=== PATIENT | female | born 1975 | race Caucasian/White ===

== ENCOUNTER 2018-03-04 17:07 | Emergency (ER) | payer SELFPAY ==
--- NOTE | 2018-03-04 18:04 | RADIOLOGY REPORT (SQ) ---
EXAM DESCRIPTION: HAND LEFT 3 VIEWS COMPLETED DATE/TIME: 03/04/2018 5:52 pm REASON FOR STUDY: dog bite COMPARISON: None. EXAM PARAMETERS: NUMBER OF VIEWS: Three views. TECHNIQUE: AP, lateral and oblique radiographic images acquired of the left hand. LIMITATIONS: None. FINDINGS: MINERALIZATION: Normal. BONES: No acute fracture or dislocation. No worrisome bone lesions. JOINTS: No effusions. SOFT TISSUES: No soft tissue swelling. No foreign body. OTHER: No other significant finding. IMPRESSION: NEGATIVE STUDY OF THE LEFT HAND. NO RADIOGRAPHIC EVIDENCE OF ACUTE INJURY. TECHNICAL DOCUMENTATION: JOB ID: [id number] [employer]- All Rights Reserved Reading location - IP/workstation name: [email or web address]
[2018-03-04] MEDS ORDERED: OXYCODONE-ACETAMINOPHEN 5-325 MG TABLET PO ONE (18:16)
--- NOTE | 2018-03-04 18:21 | ER Document Report ---
HPI - HPI Pain Level: 4 Notes: Patient is a 42-year-old female with a history of mental health disorders who presents to the ED complaining of left hand pain status post dog bite prior to arrival. Patient states that her dog as well as her brothers dog were in a fight and she tried to break it up and her left hand got caught in the middle. Patient states that she does have some puncture wounds and a cut to her left hand. Patient states that the pain does not radiate and she has no numbness or tingling associated with it. She is eating and drinking without difficulties. She is urinating normally and having normal bowel movements. She denies any drug allergies. No other concerns or complaints at this time. Denies any headache, fever, neck pain, URI, sore throat, chest pain, palpitations, syncope , cough, shortness of breath, wheeze, dyspnea, abdominal pain, nausea/vomiting/ diarrhea, urinary retention, dysuria, hematuria, loss of control of bowel or bladder, numbness/tingling, saddle anesthesia, muscle paralysis/weakness, or rash. - ROS Systems Reviewed and Negative: Yes All other systems reviewed and negative - CONSTITUTIONAL Constitutional: DENIES: Fever, Chills - EENT EENT: DENIES: Sore Throat, Ear Pain, Eye problems - NEURO Neurology: DENIES: Headache, Weakness, Vision blurred, Dizzinesss / Vertigo - CARDIOVASCULAR Cardiovascular: DENIES: Chest pain - RESPIRATORY Respiratory: DENIES: Trouble Breathing, Coughing - GASTROINTESTINAL Gastrointestinal: DENIES: Abdominal Pain, Black / Bloody Stools - URINARY Urinary: DENIES: Dysuria, Urgency, Frequency - REPRODUCTIVE Reproductive: DENIES: : - MUSCULOSKELETAL Musculoskeletal: REPORTS: Extremity pain - left hand Past Medical History - Social History Smoking Status: Current Every Day Smoker Chew tobacco use (# tins/day): No Frequency of alcohol use: None Drug Abuse: None Family History: Reviewed & Not Pertinent Patient has suicidal ideation: No Patient has homicidal ideation: No Renal/ Medical History: Denies: Hx Peritoneal Dialysis Past Surgical History: Reports: Hx Breast Surgery - cysts right breast removed, Hx Section - 2 - Immunizations Hx Diphtheria, Pertussis, Tetanus Vaccination: Yes - 2009 Hx Pneumococcal Vaccination: 11/21/00 Vertical Provider Document - CONSTITUTIONAL Agree With Documented VS: Yes Notes: PHYSICAL EXAMINATION: GENERAL: Well-appearing, well-nourished and in no acute distress. LUNGS: Breath sounds clear to auscultation bilaterally and equal. No wheezes rales or rhonchi. HEART: Regular rate and rhythm without murmurs, rubs, gallops. Musculoskeletal: Left hand: FROM to passive/active. Strength 5+/5. N/V intact distal. No bony tenderness appreciated. + tenderness at sites of puncture wounds. Extremities: No cyanosis, clubbing, or edema b/l. Peripheral pulses 2+. Capillary refill less than 3 seconds. NEUROLOGICAL: Cranial nerves grossly intact. Normal speech, normal gait. Normal sensory, motor exams PSYCH: Normal mood, normal affect. SKIN: Left hand: There is a narrow larger puncture/laceration to the lateroanterioer thumb approx 3.5cm x0.5cm. There is a puncture to the dorsal lateral hand approx 0.5cm and 2 small abrasion/punctures to the dorsal hand. No abscess or purulence. No active bleeding. - INFECTION CONTROL TRAVEL OUTSIDE OF THE [place] IN LAST 30 DAYS: No Course - Re-evaluation Re-evalutation: 03/04/18 18:55 Patient is an afebrile, well-hydrated, 42-year-old female who presents to the ED with dog bite puncture/laceration to the left hand. Vitals are acceptable. PE is otherwise unremarkable for any neurovascular compromise, obvious tendon/ ligament rupture, obvious fracture/dislocation, retained foreign body, septic joint. X-ray was unremarkable for any acute pathology. Wound was thoroughly irrigated and cleansed as well as soaked. Steri-Strips were applied to the long puncture/laceration of the left hand while still allowing for adequate drainage and healing. Wound dressing was then placed. Sling provided for comfort. I will send her home with a prescription for Augmentin to take as directed. Recheck with your PCM in 2-3 days. Consider consult with orthopedic for further evaluation and management. Return to the ED with any worsening/ concerning symptoms otherwise as reviewed discharge. Patient is in agreement. - Vital Signs Vital signs: Temp Pulse Resp BP Pulse Ox 97.9 F 96 16 128/64 H 97 03/04/18 17:15 03/04/18 17:15 03/04/18 17:15 03/04/18 17:15 03/04/18 17:15 Procedures - Laceration/Wound Repair Left Hand Time completed: 18:50 Wound length (cm): 3.5 Wound's Depth, Shape: Superficial, Linear Laceration pre-procedure: Other - chlorhexadine/saline Wound explored: Clean, No foreign body removed Irrigated w/ Saline (mLs): 100 Wound Debrided: none Wound Repaired With: Steri-strips - 3 Post-procedure wound care: Sterile dressing applied, Sling applied Post-procedure NV exam normal: Yes Complications: No Discharge - Discharge Clinical Impression: Dog bite of left hand Qualifiers: Encounter type: initial encounter Qualified Code(s): S61.452A - Open bite of left hand, initial encounter Condition: Stable Disposition: HOME, SELF-CARE Instructions: Animal Bites ([facility]), Augmentin ([facility]) Additional Instructions: Keep the skin clean Wash with soap and water Tylenol/ibuprofen if needed Triple antibiotic ointment daily Wound dressing changes daily Take medication as directed Monitor for any worsening symptoms Recheck with your PCM in 2-3 days Consider consult with Orthopedics for ongoing/worsening symptoms Return to the ED with any worsening symptoms and/or development of fever, headache, chest pain, palpitations, syncope, shortness of breath, trouble breathing, abdominal pain, n/v/d, abscess, purulent discharge, red streaks, worsening swelling, or other worsening symptoms that are concerning to you. Prescriptions: Amox Tr/Potassium Clavulanate [Augmentin 875-125 Tablet] 1 tab PO BID 10 Days # 20 tablet Forms: Elevated Blood Pressure, Smoking Cessation Education Referrals: CAMILA LYON DO [ACTIVE STAFF] - Follow up as needed
[2018-03-04] MEDS ORDERED: DIPH/PERTUSS(ACELL)/TETANUS VAC/PF 0.5 ML SYR (>=10YO) IM ONE (18:59)
[2018-03-04] MEDS ORDERED: HYDROCODONE/ACETAMINOPHEN 5-325 MG (6 TAB/ER DISP) PO PRN (18:59)
[2018-03-04 19:27] VITALS: BP 122/70
== END 2018-03-04 19:27 | disposition home or self-care (01) ==
LOC: ER 17:07
PROC: 3E0234Z Introduction of Serum, Toxoid and Vaccine into Muscle, Percutaneous Approach (ICD-10-PCS; principal; 2018-03-04)
DX: S61.452A Open bite of left hand, initial encounter (principal); W54.0XXA Bitten by dog, initial encounter; F17.200 Nicotine dependence, unspecified, uncomplicated; Z23 Encounter for immunization
CPT/HCPCS: 90471; 90715; 99283

== ENCOUNTER 2018-09-05 04:36 | Emergency (ER) | payer SELFPAY ==
[2018-09-05] MEDS ORDERED: KETOROLAC TROMETHAMINE 60 MG/2 ML SDV IM ONE (06:32)
--- NOTE | 2018-09-05 06:33 | ER Document Report ---
ED General - General Chief Complaint: Back Pain Stated Complaint: BACK PAIN Time Seen by Provider: 09/05/18 06:03 Notes: Patient is a 43-year-old female that presents to the emergency department for chief complaint of low back pain. Patient reports that over the last 3 days she has had low back pain, with some pain going down the left leg, which she has had a history of. She states she has had "nerve damage" on the left side. She currently rates the pain as an 8 of 10, describes as an aching sensation, occasionally sharp. She did try taking Tylenol and ibuprofen at home with minimal relief. She denies any saddle anesthesia or paresthesia, denies any urinary retention or stool incontinence. She also denies having any dysuria hematuria. She denies having any numbness, tingling or weakness otherwise in her lower extremities, denies any change in her gait, falls, or any injuries. She does report however she was moving her chair that was heavier a few days ago , that may have led to this exacerbation of her chronic low back pain. Past Medical History: Sciatica, chronic low back pain Past Surgical History: Social History: Admits to smoking cigarettes daily, denies alcohol or drug use Family History: Reviewed and noncontributory for presenting illness Allergies: Reviewed, see documented allergy list. REVIEW OF SYSTEMS: Unless otherwise stated in this report the patient's positive and negative responses for review of systems for constitutional, eyes, ENT, cardiovascular, respiratory, gastrointestinal, neurological, genitourinary, musculoskeletal, and integumentary systems and related systems to the presenting problem are either as stated in the HPI or were not pertinent or were negative for the symptoms and/or complaints related to the presenting medical problem. PHYSICAL EXAMINATION: Vital signs reviewed, nursing noted reviewed. GENERAL: Well-appearing, well-nourished and in no acute distress. HEAD: Atraumatic, normocephalic. EYES: Eyes appear normal, extraocular movements intact, sclera anicteric, conjunctiva are normal. ENT: nares patent, oropharynx clear without exudates. Moist mucous membranes. NECK: Normal range of motion, supple without lymphadenopathy LUNGS: Breath sounds clear to auscultation bilaterally and equal. No wheezes rales or rhonchi. HEART: Regular rate and rhythm without murmurs ABDOMEN: Soft, nontender, normoactive bowel sounds. No rebound, guarding, or rigidity. No masses appreciated. Back: Mild tenderness with palpation to the paraspinal muscles of the lumbar spine, no midline tenderness, step-offs or deformities, negative straight leg raising bilaterally EXTREMITIES: Nontender, good range of motion, no pitting or edema. NEUROLOGICAL: No focal neurological deficits. Moves all extremities spontaneously Motor and sensory grossly intact on exam. Patellar and Achilles tendon reflexes are +2/4 bilaterally and equal PSYCH: Normal mood, normal affect. SKIN: Warm, Dry, normal turgor, no rashes or lesions noted on exposed skin TRAVEL OUTSIDE OF THE [place] IN LAST 30 DAYS: No - Related Data Allergies/Adverse Reactions: No Known Allergies Allergy (Unverified 10/02/11 13:50) Past Medical History - Social History Smoking Status: Current Every Day Smoker Family History: Reviewed & Not Pertinent Patient has suicidal ideation: No Patient has homicidal ideation: No Renal/ Medical History: Denies: Hx Peritoneal Dialysis Past Surgical History: Reports: Hx Breast Surgery - cysts right breast removed, Hx Section - 2 - Immunizations Hx Diphtheria, Pertussis, Tetanus Vaccination: Yes - 2009 Hx Pneumococcal Vaccination: 11/21/00 Physical Exam - Vital signs Vitals: Temp Pulse BP Pulse Ox 97.4 F 66 111/57 L 99 09/05/18 04:42 09/05/18 04:42 09/05/18 04:42 09/05/18 04:42 Course - Re-evaluation Re-evalutation: Patient seen and examined vital signs reviewed. Patient was evaluated and treated as appropriate for the patient's presenting symptoms and complaint, with consideration of any critical or life threatening conditions that may be associated with their obtained history and exam as noted above. Patient was treated with Toradol The patient was re-evaluated and was stable and improved Evaluation was most consistent with low back pain, with sciatica, will treat with prednisone, muscle relaxer, and anti-inflammatory advised to follow-up with a primary care physician. Plan of care was discussed with the patient at this point, after careful consideration I feel that that patient can be discharged from the emergency department, the patient was educated treatments and reasons to return to the emergency department based on their presumed diagnosis as noted above, they were advised to followup with a primary care physician in 2-3 days. Patient was agreeable to plan of care. *Note is created using voice recognition software and may contain spelling, syntax or grammatical errors. - Vital Signs Vital signs: Temp Pulse Resp BP Pulse Ox 97.5 F 56 L 14 116/72 98 09/05/18 07:00 09/05/18 07:00 09/05/18 07:00 09/05/18 07:00 09/05/18 07:00 Discharge - Discharge Clinical Impression: Back pain Condition: Stable Disposition: HOME, SELF-CARE Instructions: Low Back Pain ([facility]), Warm Packs ([facility]) Additional Instructions: Please return to the emergency department if you have any worsening, or concern of your symptoms. Please return to the emergency department if you develop chest pain, difficulty breathing, severe abdominal pain, or ongoing vomiting. Please follow-up with your primary care physician in 2-3 days and any other recommended physicians. If prescribed, take all medications as directed. If you have any questions or concerns do not hesitate to return the emergency department for evaluation. Prescriptions: Methocarbamol [Robaxin 500 mg Tablet] 500 mg PO TID PRN #15 tablet PRN Reason: back pain Naproxen [Naprosyn] 500 mg PO Q12 PRN #30 tablet PRN Reason: back pain Prednisone [Deltasone 20 mg Tablet] 2 tab PO DAILY 5 Days #10 tablet Referrals: JP TODD MD [ACTIVE STAFF] - Follow up in 3-5 days (or your primary care. )
[2018-09-05 07:02] VITALS: BP 116/72
== END 2018-09-05 07:02 | disposition home or self-care (01) ==
LOC: ER 04:36
DX: M54.5 Low back pain (principal); M79.605 Pain in left leg; F17.210 Nicotine dependence, cigarettes, uncomplicated
CPT/HCPCS: 99283; 96372; J1885